=== PATIENT | female | born 1995 | race Caucasian/White ===

== ENCOUNTER 2017-12-11 23:04 | Emergency (ER) | payer OTHER ==
[~2017-12-11] VITALS: Ht 162.6 cm; Wt 50.8 kg
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
--- NOTE | 2017-12-11 23:22 | NUR ---
SEEN BY ER MD HOLLINS
--- NOTE | 2017-12-11 23:32 | NUR ---
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
[2017-12-11] MEDS ORDERED: ACETAMINOPHEN ES 500 MG TABLET ONE (23:42)
--- NOTE | 2017-12-11 23:45 | NUR ---
PT OFF TO CT SCAN
--- NOTE | 2017-12-12 | NUR ---
PT BACK FROM CT SCAN
[2017-12-12] MEDS: ACETAMINOPHEN ES 500 MG TABLET PO ONE (00:07)
--- NOTE | 2017-12-12 00:34 | NUR ---
PT COMFORTABLE IN BED WITH
[2017-12-12 00:50] VITALS: BP 113/78
== END 2017-12-12 00:51 | disposition home or self-care (01) ==
LOC: ER 23:09
DX: S06.0X0A Concussion without loss of consciousness, initial encounter (principal); W22.8XXA Striking against or struck by other objects, initial encounter; Y93.89 Activity, other specified; Y92.89 Other specified places as the place of occurrence of the external cause; Y99.8 Other external cause status
CPT/HCPCS: 70450-TC; A4606; Z7610